=== PATIENT | female | born 1995 | race Caucasian/White ===

== ENCOUNTER 2020-04-16 20:15 | Emergency (ER) | payer OTHER, SELFPAY ==
--- NOTE | ~2020-04-16 | XR_ITS ---
EXAMINATION: XR shoulder LT min 2V EXAM DATE: 04/16/2020 21:22 INDICATION: Pain from anterior to the scapula. High blood pressure. No known recent injury. TECHNIQUE: The following left shoulder projections obtained: frontal projection with internal rotatio n, frontal projection with external rotation, Grashey, and axillary (4+ views). There is no prior st udy for comparison. FINDINGS: No evidence of left shoulder rotator cuff calcific tendinosis. Unremarkable left glenohu meral and acromioclavicular joints. There are no acute fractures or dislocations identified. There i s no subcutaneous gas. The soft tissue is unremarkable. There are no radiopaque foreign bodies. IMPRESSION: Normal x-ray exam. Reviewed, dictated and finalized at location A. IMPRESSION: Normal x-ray exam.
[2020-04-16 20:20] VITALS: BP 170/89; PULSE 102; RESP 22; TEMP 37.3; O2SAT 98
--- NOTE | 2020-04-16 20:57 | ECG_ITS ---
Measurements Intervals Gantt Rate: 94 P: 62 PA: 157 QRS: 51 QRSD: 86 T: 48 QT: 351 QTc: 440 Interpretive Statements SINUS RHYTHM POSSIBLE LEFT ATRIAL ENLARGEMENT BORDERLINE ECG Electronically Signed On 04-16-2020 21:28:02 CDT by Cristopher Castillo D.O.
--- NOTE | 2020-04-16 21:15 | ED.UPPEXIN ---
HPI - Extremity Injury (Upper) General Chief Complaint: Extremity Injury, Upper Stated Complaint: L shoulder pain Time Seen by Provider: 04/16/20 20:31 Source: patient and family (MOTHER) Mode of arrival: ambulatory Limitations: no limitations History of Present Illness HPI narrative: Patient presents with chief complaint of pain to her left shoulder that began approximately 45 minutes prior to arrival when she sat down to eat dinner. Patient denies making any sudden movements that elicited the discomfort. Patient denies any pain in her chest, jaw or radiating down her left arm. Patient states the discomfort presents with movement of her left shoulder. She denies any direct trauma or known mechanisms of injury. Patient states that due to her hypertension, diabetes, hormonal therapy, cancer as a child she wanted to make sure that she was not having a cardiac event. Patient denies chest pain, shortness of breath, nausea, vomiting, diarrhea, syncope, dizziness, diaphoresis. Related Data Home Medications Medication Instructions Recorded Confirmed estradiol 04/16/20 levothyroxine 50 mcg PO DAILY 04/16/20 metformin 2,000 mg PO QAM 04/16/20 progesterone micronized 200 mg PO DAILY 04/16/20 Allergies Allergy/AdvReac Type Severity Reaction Status Date / Time amoxicillin Allergy Unknown Hives Verified 04/16/20 21:06 clavulanic acid Allergy Unknown HIVES Unverified 04/16/20 21:06 Review of Systems Review of Systems: Narrative: CONSTITUTIONAL: Denies fever, chills, or sweats. EYES: Denies visual changes, redness, or discharge. ENT: Denies rhinorrhea, congestion, sore throat, or otalgia. CARDIOVASCULAR: Denies chest pain, palpitations, or edema. RESPIRATORY: Denies cough or dyspnea. GASTROINTESTINAL: Denies abdominal pain, nausea, vomiting, or diarrhea. GENITOURINARY: Denies dysuria or hematuria. SKIN: Denies rash or itching. MUSCULOSKELETAL: Reports left shoulder pain denies back pain or myalgia. NEUROLOGIC: Denies headache, numbness, dizziness, or weakness. PSYCHIATRIC: Denies anxiety or depression. [facility] Past Medical History Medical History (Updated 04/16/20 @ 21:40 by Edinson Hernández PA-C) Diabetes Hypertension Ongoing treatment with hormonal therapy Social History Social History Smoking status: Never smoker Alcohol intake: never Gender identity (if verbalized by the patient): Female Exam Narrative: Exam Narrative: GENERAL: Well-appearing, well-nourished, and in no acute distress. HEAD: Normocephalic, atraumatic. EYES: PERRLA and EOMI. ENT: Nares clear, no rhinorrhea or epistaxis. Mucous membranes moist. Oropharynx without tonsillar hypertrophy exudate or other lesions. Bilateral TMs pearly guzmán nonbulging NECK: Supple. No adenopathy or masses. CHEST: No chest wall tenderness. Clear to auscultation. No respiratory distress. No wheezes rales or rhonchi HEART: Regular rate and rhythm. EXTREMITIES: Discomfort with palpation of anterior and posterior shoulder range of motion intact Discomfort with abduction internal and external rotation. No radiation of pain to jaw or radiating down left arm. SKIN: Warm, dry, no rash. NEURO: No focal deficits. Alert and oriented x3. PSYCH: Normal mood and affect. Course Vital Signs Vital signs: Vital Signs Temperature 99.1 F 04/16/20 20:20 Pulse Rate 102 H 04/16/20 20:20 Respiratory Rate 22 H 04/16/20 20:20 Blood Pressure 170/89 H 04/16/20 20:20 Pulse Oximetry 98 04/16/20 20:20 Temperature 99.1 F 04/16/20 20:20 Pulse Rate 102 H 04/16/20 20:20 Respiratory Rate 22 H 04/16/20 20:20 Blood Pressure 170/89 H 04/16/20 20:20 Pulse Oximetry 98 04/16/20 20:20 MDM - Extremity Injury (Upper) MDM Narrative Medical decision making narrative: Patient is EKG is in normal sinus rhythm without findings of acute cardiac event. Patient has discomfort is not in the chest but in the left shoulder and is exacerbated by shoulder range of motion and pa
[2020-04-16 21:27] LABS: Basophils Absolute Auto 0.1 K/mm3 (0.0-0.1); Basophils Percent Auto 1.1 % (0.2-1.2); Eosinophils Absolute Auto 0.2 K/mm3 (0-0.3); Eosinophils Percent Auto 1.3 % (0-4.4); Hematocrit 33.4 % (37.0-47.0); Hemoglobin 11.7 g/dL (12.0-15.0); Immature Granulocyte Absolute 0.11 K/mm3 (0.00-0.031); Lymphocytes Absolute Auto 7.56 K/mm3 (0.9-3.2); Lymphocytes Percent Auto 66.3 % (18.3-44.2); Mean Corpuscular Hemoglobin 27.5 pg (26-34); Mean Corpuscular Volume 78.4 fl (80-100); Mean Platelet Volume 10.2 fl (7.4-10.4); Monocytes Absolute Auto 0.6 K/mm3 (0.1-0.6); Monocytes Percent Auto 5.4 % (2.6-8.5); Neutrophils Absolute Auto 2.8 K/mm3 (1.3-6.7); Neutrophils Percent Auto 24.9 % (45.5-73.1); Platelet Count Result 209 k/mm3 (150-375); Red Blood Count 4.26 M/mm3 (4.2-5.4); Red Cell Distribution Width 13.4 % (11.5-14.5); White Blood Count 11.4 K/mm3 (4.5-10.0)
[2020-04-16 21:50] LABS: Troponin I < 0.012 ng/mL (0.000-0.034)
[2020-04-16 22:00] VITALS: BP 140/89; PULSE 94; RESP 18; O2SAT 98
== END 2020-04-16 22:15 | disposition home or self-care (01) ==
PROVIDERS: Physician Assistant; Emergency Provider Emergency Medicine
DX: M62.838 Other muscle spasm (principal); I10 Essential (primary) hypertension; E11.9 Type 2 diabetes mellitus without complications; R94.31 Abnormal electrocardiogram [ECG] [EKG]; Z79.84 Long term (current) use of oral hypoglycemic drugs
CPT/HCPCS: 36415; 73030; 84484; 85025; 93005; 99284

== ENCOUNTER 2020-07-20 10:49 | Emergency (ER) | payer OTHER, SELFPAY ==
--- NOTE | ~2020-07-20 | CT_ITS ---
EXAMINATION: CTA chest PE protocol DATE: 07/20/2020 12:19 INDICATION: Hemoptysis. COVID positive TECHNIQUE: Computed tomography (CT) pulmonary angiogram of the chest was performed with 100 mL Omnipa que-350 intravenous contrast. Additional 3D reconstructions utilizing coronal maximum intensity proje ction (MIP) were performed. Automated exposure control and iterative reconstruction technique were em ployed. The dose-length product was 236.58 mGy-cm. COMPARISON: None FINDINGS: Excellent contrast opacification of the pulmonary arteries. There is moderate streak artifact from de nse contrast in the superior vena cava and right atrium. Mild scattered respiratory motion artifact w hich does not significantly limit evaluation. No pulmonary embolism. There are multiple scattered jesu ateral round groundglass opacities with mid to lower lung predominance. There are few scattered bilat eral subcentimeter lucent pulmonary cysts which are nonspecific but could not exclude early emphysema . No pulmonary edema, pleural effusion or pneumothorax. Heart size is normal. No pericardial or pleur al effusion. Thoracic aorta is normal in caliber with no dissection. No pathologically enlarged thora cic lymphadenopathy. Diffuse hepatic steatosis. Visualized upper abdomen is otherwise unremarkable. M ildly expansile hemangioma with thickened trabecular pattern filling the T3 vertebra including the mo derately expanded vertebral body and posterior elements. IMPRESSION: 1. No pulmonary embolism. 2. Multiple bilateral round groundglass opacities is likely infectious or inflammatory in etiology. T hese would be consistent with COVID 19 pneumonia. Reviewed, dictated and finalized at location A. 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 No pulmonary embolism. 2. Multiple bilateral round groundglass opacities is likely infectious or infla mmatory in etiology. These would be consistent with COVID 19 pneumonia.
[2020-07-20 10:54] VITALS: BP 150/81; PULSE 117; RESP 19; TEMP 37.1; O2SAT 100
--- NOTE | 2020-07-20 11:22 | ED.GENADULT ---
HPI - General Adult General Chief complaint: Unspecified Stated complaint: COVID Positive, Coughing Blood Time Seen by Provider: 07/20/20 11:03 Source: RN notes reviewed History of Present Illness HPI narrative: Patient presents emergency department from home for hemoptysis. Patient states she was tested for Covid yesterday and had a positive return for test today. She states she started feeling sick 4 days ago. The patient states that she is noted for the last day that she has had some productive cough that is been brownish in color with concern of blood in the sputum. She denies any fevers or chills chest pain shortness of breath or any other symptoms denies being on any blood thinners. Related Data Home Medications Medication Instructions Recorded Confirmed estradiol 04/16/20 levothyroxine 50 mcg PO DAILY 04/16/20 metformin 2,000 mg PO QAM 04/16/20 progesterone micronized 200 mg PO DAILY 04/16/20 labetalol 300 mg PO 07/20/20 Allergies Allergy/AdvReac Type Severity Reaction Status Date / Time amoxicillin Allergy Unknown Hives Verified 07/20/20 11:22 clavulanic acid Allergy Unknown HIVES Unverified 07/20/20 11:22 Review of Systems Review of Systems: Narrative: Gen.: Denies fevers or chills ENT: Denies congestion Respiratory: Denies shortness of breath reports cough with hemoptysis CV: Denies chest pain or palpitations GI: Denies abdominal pain nausea, emesis or diarrhea Musculoskeletal: Denies back pain or muscle pain Neuro: Denies numbness, tingling, weakness or focal weakness Skin: Denies rash Except as documented, all other systems reviewed and negative COUNT INCLUDES THE [facility] Past Medical History Medical History Diabetes Hypertension Ongoing treatment with hormonal therapy Social History Social History Smoking status: Never smoker Alcohol intake: never Gender identity (if verbalized by the patient): Female Exam Narrative: Exam Narrative: APPEARANCE: No acute distress, nontoxic, resting in bed EYES: EOMI HEENT: Normocephalic, atraumatic, OMM RESPIRATORY: No respiratory distress Clear to auscultation bilaterally with no rhonchi wheezing or rales. CARDIOVASCULAR: Regular rate and rhythm without murmurs rubs or gallops. ABDOMINAL: Soft, nontender, nondistended, no rebound or guarding MUSCULOSKELETAl: Moves all extremities. No clubbing, cyanosis or edema. NEURO: Awake and alert. Following commands, speech normal, no focal deficits SKIN:: Warm, dry. No rashes lesions or abrasions PSYCHIATRIC: Normal affect/mood, Course Course Emergency Course: Called and discussed with her pulmonary presentation work-up. Discussed metamorphosis. This time feels patient may be discharged home recommends no antibiotics or steroids with follow-up as an outpatient Discussed with patient results of workup and diagnosis. Discussed need for follow-up with primary care, proper use of medication, and reasons to return to the emergency department. Patient understands and agrees to current treatment plan Vital Signs Vital signs: Vital Signs Temperature 98.8 F 07/20/20 10:54 Pulse Rate 117 H 07/20/20 10:54 Respiratory Rate 19 07/20/20 10:54 Blood Pressure 150/81 H 07/20/20 10:54 Pulse Oximetry 100 07/20/20 10:54 Temperature 98.8 F 07/20/20 10:54 Pulse Rate 117 H 07/20/20 10:54 Respiratory Rate 19 07/20/20 10:54 Blood Pressure 150/81 H 07/20/20 10:54 Pulse Oximetry 100 07/20/20 10:54 Medical Decision Making Vital Signs Vital Signs: Vital Signs Temperature 98.8 F 07/20/20 10:54 Pulse Rate 117 H 07/20/20 10:54 Respiratory Rate 19 07/20/20 10:54 Blood Pressure 150/81 H 07/20/20 10:54 Pulse Oximetry 100 07/20/20 10:54 Temperature 98.8 F 07/20/20 10:54 Pulse Rate 117 H 07/20/20 10:54 Respiratory Rate 07/20/20 10:54 Blood Pressure 150/81 H
[2020-07-20 11:41] LABS: Basophils Percent Auto 0.1 % (0.2-1.2); Eosinophils Absolute Auto 0.1 K/mm3 (0-0.3); Eosinophils Percent Auto 1.7 % (0-4.4); Hematocrit 39.7 % (37.0-47.0); Hemoglobin 13.5 g/dL (12.0-15.0); Immature Granulocyte Absolute 0.02 K/mm3 (0.00-0.031); Immature Granulocyte Percent A 0.3 % (0-0.5); Lymphocytes Absolute Auto 1.75 K/mm3 (0.9-3.2); Lymphocytes Percent Auto 25.3 % (18.3-44.2); Mean Corpuscular Hemoglobin 26.3 pg (26-34); Mean Corpuscular Volume 77.4 fl (80-100); Mean Platelet Volume 9.8 fl (7.4-10.4); Monocytes Absolute Auto 0.5 K/mm3 (0.1-0.6); Monocytes Percent Auto 6.9 % (2.6-8.5); Neutrophils Absolute Auto 4.6 K/mm3 (1.3-6.7); Neutrophils Percent Auto 65.7 % (45.5-73.1); Platelet Count Result 225 k/mm3 (150-375); Red Blood Count 5.13 M/mm3 (4.2-5.4); Red Cell Distribution Width 13.7 % (11.5-14.5); White Blood Count 6.9 K/mm3 (4.5-10.0)
[2020-07-20 11:51] LABS: Prothrombin Time 13.4 Seconds (11.1-14.7)
[2020-07-20 11:52] LABS: Alanine Aminotransferase 85 U/L (4-35); Albumin Level 4.5 g/dL (3.5-5.1); Alkaline Phosphatase 66 U/L (38-126); Anion Gap 13 mmol/L (8-16); Aspartate Amino Transferase 60 U/L (14-36); Bilirubin,Total 0.8 mg/dL (0.2-1.3); Blood Urea Nitrogen 8 mg/dL (7-17); Calcium 9.4 mg/dL (8.4-10.2); Carbon Dioxide 25 mmol/L (22-30); Chloride 97 mmol/L (98-107); Estimated Glomerular Filt Rate > 60; Glucose 376 mg/dL (65-105); Partial Thromboplastin Time 24.3 SECONDS (22.3-36.8); Sodium 135 mmol/L (137-145)
[2020-07-20 13:50] VITALS: BP 109/64; PULSE 108; RESP 18; O2SAT 98
== END 2020-07-20 14:02 | disposition home or self-care (01) ==
PROVIDERS: Emergency Provider Emergency Medicine
DX: U07.1 COVID-19 (principal); R04.2 Hemoptysis; E11.9 Type 2 diabetes mellitus without complications; I10 Essential (primary) hypertension; R91.8 Other nonspecific abnormal finding of lung field
CPT/HCPCS: 36415; 71275; 80053; 81025; 85025; 85610; 85730; 99284; Q9967

== ENCOUNTER 2022-04-27 17:08 | Emergency (ER) | payer OTHER, SELFPAY ==
--- NOTE | ~2022-04-27 | XR_ITS ---
EXAMINATION: XR abdomen/kub 1V DATE: 04/27/2022 17:52 INDICATION: Right flank pain. TECHNIQUE: A supine view of the abdomen was obtained. COMPARISON: None. FINDINGS: There are no dilated loops of bowel. There is no visible urolithiasis. IMPRESSION: 1. No visible urolithiasis. Reviewed, dictated and finalized at location A. IMPRESSION: 1. No visible urolithiasis.
--- NOTE | 2022-04-27 17:12 | ED.FEMALEGU ---
HPI - Female Genitourinary General Chief complaint: Urogenital-Female Stated complaint: uti Time Seen by Provider: 04/27/22 17:32 Source: patient and RN notes reviewed Mode of arrival: ambulatory Limitations: no limitations History of Present Illness HPI Narrative: 26-year-old female with history of type 2 diabetes presents with concern for low back pain, worse on the right, 6/10. She reports urine frequency and nausea Denies dysuria, urgency, abdominal pain, suprapubic pressure. Reports she has been alternating Tylenol and ibuprofen. She denies hematuria. She reports normal bowel movements. She denies fever, body aches, chills, sweats, vomiting. MD elicited complaint: UTI Related Data Home Medications Medication Instructions Recorded Confirmed estradiol 0.0375 mg/24 hr 04/16/20 semiweekly transdermal patch levothyroxine 50 mcg tablet 50 mcg PO DAILY 04/16/20 metformin 500 mg tablet,extended 2,000 mg PO QAM 04/16/20 release 24 hr progesterone micronized 200 mg 200 mg PO DAILY 04/16/20 capsule labetalol 300 mg tablet 300 mg PO 07/20/20 insulin glargine-yfgn 100 unit/mL unit subcut 04/27/22 (3 mL) subcutaneous pen (Semglee (insulin glargine-yfgn) Pen) insulin lispro 100 unit/mL subcut 04/27/22 subcutaneous pen (Humalog KwikPen (U-100) Insulin) Allergies Allergy/AdvReac Type Severity Reaction Status Date / Time amoxicillin Allergy Unknown Hives Verified 04/27/22 17:10 clavulanic acid Allergy Unknown HIVES Verified 04/27/22 17:10 Review of Systems Review of Systems: CONSTITUTIONAL: Denies malaise, chills, sweats, or fever. CARDIOVASCULAR: Denies chest pain, palpitations, or edema. RESPIRATORY: Denies cough or dyspnea. GASTROINTESTINAL: Denies abdominal pain, nausea, vomiting, diarrhea GENITOURINARY: Denies dysuria, hematuria urgency, suprapubic pressure. Reports flank pain, worse on the right, urine frequency SKIN: Denies rash or itching. MUSCULOSKELETAL: Reports low back pain or myalgia. All systems reviewed & are unremarkable except as noted in HPI and below PMFSH Past Medical History Medical History Diabetes Hypertension Ongoing treatment with hormonal therapy Social History Social History Smoking status: Never smoker Alcohol intake: never Gender identity (if verbalized by the patient): Female Comments At time of signature, agree with nursing past medical, surgical, social and family history. There is no relevant family history pertinent to the presenting complaint Exam Narrative: GENERAL: Well-appearing, well-nourished, and in no acute distress. HEAD: Normocephalic. EYES: PERRLA, conjunctivae clear. NECK: Supple. No lymphadenopathy CHEST: Clear to auscultation. No respiratory distress. HEART: Regular rate and rhythm. ABDOMEN: Soft, nontender upon palpation, nondistended, normal active bowel sounds, no palpable or pulsatile masses, no guarding. No CVA tenderness SKIN: Warm, dry, no rash. NEURO: Alert and oriented x3. PSYCH: Normal mood and affect Course Course Emergency Course: Patient is aware of diagnosis, understands and agrees to treatment plan. Anticipatory guidance given. Patient agrees to follow-up as directed and is aware of reasons to seek care at the emergency department. Portions of this record may have been created with voice recognition software Level of Care: Express Care Visit Vital Signs Vital signs: Reviewed. MDM - Female Genitourinary MDM Narrative Medical decision making narrative: Exam findings and UA show no acute concerns or changes; patient is non-toxic appearing and is in no distress. Patient is appropriate for outpatient treatment and follow-up. Differential Diagnosis Differential diagnosis: Likely urinary tract infection and cystitis Imaging Data My impression: Images reviewed, interpreted by radiologist, agree
[2022-04-27 17:14] VITALS: BP 156/95; PULSE 102; RESP 16; TEMP 36.3; O2SAT 100
== END 2022-04-27 18:07 | disposition home or self-care (01) ==
PROVIDERS: Emergency Provider Nurse Practitioner
DX: R35.0 Frequency of micturition (principal); R10.9 Unspecified abdominal pain; E11.9 Type 2 diabetes mellitus without complications; I10 Essential (primary) hypertension
CPT/HCPCS: 74018; 81003; 87086; 99213; G0463

== ENCOUNTER 2022-08-02 19:41 | Emergency (ER) | payer OTHER, SELFPAY ==
--- NOTE | 2022-08-02 19:44 | ED.FEMALEGU ---
HPI - Female Genitourinary General Chief complaint: Urogenital-Female Stated complaint: UTI Time Seen by Provider: 08/02/22 19:44 Source: patient Mode of arrival: ambulatory Limitations: no limitations History of Present Illness HPI Narrative: Ms. Newman is a 26-year-old female patient presenting to the clinic today with complaints of possible urinary tract infection. She reports she has been having some dysuria and vaginal discharge. Symptoms began yesterday. She reports the last intercourse with her boyfriend was on Monday. She reports that they are faithful. She is also concerned about being possibly . Took a urine test today and was negative. Her last menstrual period was may. She reports that she has been routinely regular for her. The she denies any fever or chills. She denies any low back pain,flank pain, or abdominal pain Related Data Home Medications Medication Instructions Recorded Confirmed estradiol 0.0375 mg/24 hr 04/16/20 semiweekly transdermal patch levothyroxine 50 mcg tablet 50 mcg PO DAILY 04/16/20 metformin 500 mg tablet,extended 2,000 mg PO QAM 04/16/20 release 24 hr progesterone micronized 200 mg 200 mg PO DAILY 04/16/20 capsule labetalol 300 mg tablet 300 mg PO 07/20/20 insulin glargine-yfgn 100 unit/mL unit subcut 04/27/22 (3 mL) subcutaneous pen (Semglee (insulin glargine-yfgn) Pen) insulin lispro 100 unit/mL subcut 04/27/22 subcutaneous pen (Humalog KwikPen (U-100) Insulin) dapagliflozin 5 mg tablet (Farxiga) mg 08/02/22 tirzepatide 5 mg/0.5 mL mg subcut 08/02/22 subcutaneous pen injector (Mounjaro) Allergies Allergy/AdvReac Type Severity Reaction Status Date / Time amoxicillin Allergy Unknown Hives Verified 08/02/22 19:55 clavulanic acid Allergy Unknown HIVES Verified 08/02/22 19:55 Review of Systems Review of Systems: Pertinent positives per HPI. Patient denies any fever, chills, rash, headache, visual changes, dizziness, cough, runny nose, sore throat, shortness of breath, chest pain, palpitations, nausea, vomiting, diarrhea, constipation, abdominal pain. [facility] Past Medical History Medical History Diabetes Hypertension Ongoing treatment with hormonal therapy Social History Social History Smoking status: Never smoker Alcohol intake: never Gender identity (if verbalized by the patient): Female Comments At the time of my signature, I reviewed and agree with the nursing past medical, surgical, social, and family history. There is no relevant family history pertinent to the patient complaint. Exam Narrative: General: Well-developed, well nourished, in no apparent distress Head: Normocephalic, atraumatic. Cardio: Regular rate and rhythm, s1 and s2 normal, no murmur appreciated. Resp: Clear to auscultation bilaterally, no rhonchi, rales, wheezing or rubs. Abdomen: Soft, pliable, bowel sounds present in all quadrants, non-tender to palpation, no CVAT tenderness. : Pelvic exam performed with (Mini RN) at bedside. Verbal consent obtained from patient. Normal external female genitalia without lesions or masses, skin tags/moles noted on vulva, vulva is excoriated Urinary meatus: patent without discharge, Vagina: No lesions or masses, yellow white discharge in the pelvic vault Cervix: pink without mass, lesions, yellowish white discharge, nontender to palpation Adnexa: without palpable mass or tenderness. Course Course Emergency Course: Portions of this record may have been created with voice recognition software. Level of Care: Express Care Visit Vital Signs Vital signs: Vital Signs Temperature 36.4 C L 08/02/22 19:58 Pulse Rate 94 08/02/22 19:58 Respiratory Rate 16 08/02/22 19:58 Blood Pressure 122/78 08/02/22 19:58 Pulse Oximetry 100 08/02/22 19:58 Oxyge
[2022-08-02 19:58] VITALS: BP 122/78; PULSE 94; RESP 16; TEMP 36.4; O2SAT 100
--- NOTE | 2022-08-02 20:35 | PC.NURSE ---
pelvic exam done by skate hop with rn at bedside.
== END 2022-08-02 20:53 | disposition home or self-care (01) ==
PROVIDERS: Emergency Provider Nurse Practitioner Family
DX: R30.0 Dysuria (principal); N89.8 Other specified noninflammatory disorders of vagina; E11.9 Type 2 diabetes mellitus without complications; I10 Essential (primary) hypertension; Z79.4 Long term (current) use of insulin
CPT/HCPCS: 81003; 81025; 87070; 87086; 87088; 87147; 87491; 87591; 87661; 99213; G0463

== ENCOUNTER 2023-08-22 08:06 | Emergency (ER) | payer OTHER, SELFPAY ==
--- NOTE | 2023-08-22 08:18 | ED.URI ---
HPI - URI/Sore Throat General Chief Complaint: Upper Respiratory Infection Stated Complaint: congestion, sore throat Time Seen by Provider: 08/22/23 08:19 History of Present Illness HPI Narrative: 27-year-old female with history of DM and HTN presented for complaint of sore throat and nasal drainage. Onset last night. Denies cough, shortness of breath, wheezing nausea vomiting, body aches, fevers or chills. Taking Coricidin for symptoms. Related Data Home Medications Medication Instructions Recorded Confirmed levothyroxine 50 mcg tablet 50 mcg PO DAILY 04/16/20 08/22/23 insulin glargine-yfgn 100 unit/mL 100 unit subcut DAILY 04/27/22 08/22/23 (3 mL) subcutaneous pen (Semglee (insulin glargine-yfgn) Pen) insulin lispro 100 unit/mL 100 unit subcut DAILY 04/27/22 08/22/23 subcutaneous pen (Humalog KwikPen (U-100) Insulin) blood-glucose sensor (Dexcom G7 08/22/23 08/22/23 Sensor device) Allergies Allergy/AdvReac Type Severity Reaction Status Date / Time amoxicillin AdvReac Mild Hives Verified 08/22/23 08:13 clavulanic acid AdvReac Mild HIVES Verified 08/22/23 08:13 Review of Systems Review of Systems: CONSTITUTIONAL: Denies body aches, fever, chills, or sweats. EYES: Denies visual changes, redness, or discharge. ENT: Reports rhinorrhea, congestion, sore throat CARDIOVASCULAR: Denies chest pain, palpitations, or edema. RESPIRATORY: Denies dyspnea. GASTROINTESTINAL: Denies abdominal pain, nausea, vomiting, or diarrhea. SKIN: Denies rash, itching, or wounds. MUSCULOSKELETAL: Denies back pain, joint pain, or myalgia. NEUROLOGIC: Denies headache PMFSH Past Medical History Medical History (Updated 08/22/23 @ 08:37 by Sara Marie APRN) ALL (acute lymphoblastic leukemia) Diabetes Hypertension Ongoing treatment with hormonal therapy Surgical History Surgical History (Updated 08/22/23 @ 08:31 by Sara Marie APRN) H/O bone marrow transplant Social History Social History Smoking status: Never smoker Alcohol intake: never Gender identity (if verbalized by the patient): Female Exam Narrative: GENERAL: well-appearing, no acute distress. EYES: conjunctivae clear ENT: Mucous membranes moist. TMs pearly guzmán with normal light reflex bilaterally; no tragal tenderness. Oropharynx erythematous Tonsils enlarged 2+ and without exudate. No drooling, no hoarseness, no trismus, uvula midline. No tripod positioning, hot potato voice, or soft palate swelling. NECK: Supple. No lymphadenopathy CHEST: Clear to auscultation, breath sounds equal. No respiratory distress, speaks in full sentences. HEART: Regular rate and rhythm. No murmur heard. SKIN: Warm, dry, no rash. NEURO: Alert and oriented x3. Course Course Emergency Course: Patient is aware of diagnosis, understands and agrees to treatment plan. Anticipatory guidance given. Patient agrees to follow-up as directed and is aware of reasons to seek care at the emergency department. Portions of this record may have been created with voice recognition software Level of Care: Express Care Visit Vital Signs Vital signs: Vital Signs Temperature 96.4 F L 08/22/23 08:20 Pulse Rate 107 H 08/22/23 08:20 Respiratory Rate 16 08/22/23 08:20 Blood Pressure 140/80 08/22/23 08:20 Pulse Oximetry 100 08/22/23 08:20 Oxygen Delivery Room Air 08/22/23 08:20 Temperature 96.4 F L 08/22/23 08:20 Pulse Rate 107 H 08/22/23 08:20 Respiratory Rate 16 08/22/23 08:20 Blood Pressure 140/80 08/22/23 08:20 Pulse Oximetry 100 08/22/23 08:20 Oxygen Delivery Room Air 08/22/23 08:20 MDM - URI/Sore Throat MDM Narrative Medical decision making narrative: Neg strep result reviewed with pt. Advised to retest for covid, she will test at home today/tomorrow. Advise supportive treatments. Patient is appropriate for outpatient treatment and follow-up. Dif
[2023-08-22 08:20] VITALS: BP 140/80; PULSE 107; RESP 16; TEMP 35.8; O2SAT 100
== END 2023-08-22 08:45 | disposition home or self-care (01) ==
PROVIDERS: Emergency Provider Nurse Practitioner Family
DX: J06.9 Acute upper respiratory infection, unspecified (principal); E11.9 Type 2 diabetes mellitus without complications; Z79.4 Long term (current) use of insulin; I10 Essential (primary) hypertension; Z85.6 Personal history of leukemia; Z94.81 Bone marrow transplant status
CPT/HCPCS: 87081; 87880; 99213; G0463